=== PATIENT | male | born 1955 | race American Indian/Alaskan Native ===

== ENCOUNTER 2021-01-13 05:59 | Emergency (ER) | payer OTHER ==
[2021-01-13] MEDS ORDERED: ASPIRIN 325 MG TAB PO ONE (06:09)
--- NOTE | 2021-01-13 06:41 | XRay Report ---
CHEST 2 VIEWS INDICATION / CLINICAL INFORMATION: chest pain. COMPARISON: None available. FINDINGS: SUPPORT DEVICES: None. HEART / MEDIASTINUM: No significant abnormality. LUNGS / PLEURA: No significant pulmonary or pleural abnormality. No pneumothorax. ADDITIONAL FINDINGS: No significant additional findings. IMPRESSION: 1. No acute findings. Signer Name: Mechelle Silva MD Signed: 01/13/2021 6:36 AM Workstation Name: [id number]
[2021-01-13 07:35] LABS: Basophils % (Auto) 0.3 % (0.0-1.8); Eosinophils # (Auto) 0.1 K/mm3 (0.0-0.4); Eosinophils % (Auto) 1.3 % (0.0-4.3); Hematocrit 42.3 % (35.5-45.6); Hemoglobin 14.4 gm/dl (11.8-15.2); Lymphocytes # (Auto) 2.1 K/mm3 (1.2-5.4); Lymphocytes % (Auto) 46.8 % (13.4-35.0); Mean Corpuscular HGB Conc 34 % (32-34); Mean Corpuscular Volume 98 fl (84-94); Monocytes # (Auto) 0.5 K/mm3 (0.0-0.8); Platelet Count 259 K/mm3 (140-440); Red Cell Distribution Width 13.5 % (13.2-15.2)
[2021-01-13 08:00] LABS: Alanine Aminotransferase 16 units/L (7-56); Albumin 4.5 g/dL (3.9-5); BUN/Creatinine Ratio 13; Blood Urea Nitrogen 15 mg/dL (9-20); Hemolysis Index 1
--- NOTE | 2021-01-13 12:48 | Electrocardiograph Report ---
[facility] Test Date: 2021-01-13 Test Time: 06:11:48 Pat Name: TIFFANY FENG Department: Room: Gender: M Ends Down Checker: DAYLIN : 1955 Requested By: ED DOC Order Number: [id number] Reading MD: Cristian Flores Measurements Intervals [place] Rate: 76 P: 62 VT: 169 QRS: 47 QRSD: 75 T: 33 QT: 367 QTc: 413 Interpretive Statements Sinus rhythm Probable left atrial enlargement Left ventricular hypertrophy Early respiratory station ST changes No previous ECG available for comparison Electronically Signed On 01-13-2021 12:47:45 EDT by Cristian Flores
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
[2021-01-13] MEDS ORDERED: ACETAMINOPHEN 325 MG TAB PO ONE (18:53)
[2021-01-13] MEDS ORDERED: amLODIPine 5 MG TAB PO ONE (18:53)
[2021-01-13] MEDS ORDERED: IBUPROFEN 600 MG TAB PO ONE (18:53)
[2021-01-13 19:19] VITALS: BP 185/106
== END 2021-01-13 19:27 | disposition home or self-care (01) ==
LOC: ED 05:59
DX: R03.0 Elevated blood-pressure reading, without diagnosis of hypertension (principal); I10 Essential (primary) hypertension; Z76.0 Encounter for issue of repeat prescription; Z79.899 Other long term (current) drug therapy; V89.2XXA Person injured in unspecified motor-vehicle accident, traffic, initial encounter; Y92.410 Unspecified street and highway as the place of occurrence of the external cause; Y93.89 Activity, other specified; Y99.8 Other external cause status
CPT/HCPCS: 36415; 71046; 80053; 84484; 85025; 93005